=== PATIENT | male | born 1965 | race African-American/Black ===

== ENCOUNTER 2022-10-31 14:13 | Outpatient (CLI) | payer OTHER, SELFPAY ==
--- NOTE | ~2022-10-31 | CT_ITS ---
EXAMINATION: CT sinus wo con DATE: 10/31/2022 14:34 INDICATION: Chronic sphenoid sinusitis. Headache. TECHNIQUE: Computed tomography (CT) of the paranasal sinuses was performed without contrast. Iterativ e reconstruction technique was employed. Exam dose: 338.90 mGy-cm total exam DLP. COMPARISON: None FINDINGS: There is prominent rightward deviation of the nasal septum. There is relatively symmetric s oft tissue swelling of the nasal turbinates, especially the inferior nasal turbinates. There is intra lamellar cell of both middle nasal turbinates. The ostiomeatal units are patent. There is minimal mucoperiosteal thickening of the frontal sinuses, left greater than right. There is patchy soft tissue thickening of the ethmoid air cells bilaterally. There is minimal anterosuperior mucoperiosteal thickening and slight focal posterior medial soft tiss ue thickening of the left sphenoid sinus. Right sphenoid sinus is clear. The mastoid air cells are normally developed and aerated bilaterally. Middle and inner ear apparatus appear normal bilaterally. IMPRESSION: Prominent rightward deviation of nasal septum Soft tissue swelling of the nasal turbinates Intralamellar cell of both middle nasal turbinates Minimal mucoperiosteal thickening of the left sphenoid sinus Patchy soft tissue thickening of the bilateral ethmoid air cells Minimal mucoperiosteal thickening of the frontal sinuses Reviewed, dictated and finalized at [facility]. Reviewed, dictated and finalized at [facility].
== END 2022-10-31 14:14 | disposition home or self-care (01) ==
PROVIDERS: PCP Internal Medicine; Visit Provider Otolaryngology
DX: J32.3 Chronic sphenoidal sinusitis (principal); J01.01 Acute recurrent maxillary sinusitis; J34.2 Deviated nasal septum
CPT/HCPCS: 70486